=== PATIENT | female | born 1980 | race Caucasian/White ===

== ENCOUNTER 2017-07-24 21:02 | Emergency (ER) | payer BC, OTHER ==
[2017-07-24 21:11] VITALS: BP 146/97; PULSE 78; TEMP 98.9; BMI 32.3
--- NOTE | 2017-07-24 21:12 | PDOC ---
Rapid Medical Evaluation Chief Complaint: Vaginal Bleeding Time Seen by Provider: 07/24/17 21:10 Medical Evaluation: 07/24/17 21:10 I have performed a brief in-person evaluation of this patient. The patient presents with a chief complaint of: ~5 weeks with vaginal bleeding and cramping. Pertinent physical exam findings: n/a I have ordered the following: n/a The patient will proceed to the ED for further evaluation. Discharge Disposition - Referrals Referrals: Kamla Arzate MD [Primary Care Provider] - - Patient Instructions - Post Discharge Activity
[2017-07-24 21:42] LABS: BASOPHIL 1.1 % (0-2.0); EOSINOPHIL 1.3 % (0-4.5); MCH 29.3 pg (25.7-33.7); MCHC 33.7 g/dl (32.0-36.0); MEAN CELL VOLUME 87.1 fl (80-96); MEAN PLT VOLUME 8.7 fl (7.5-11.1); NEUTROPHILS 64.3 % (42.8-82.8); PLATELET COUNT 315 K/MM3 (134-434); RDW 12.9 % (11.6-15.6); WHITE BLOOD COUNT 12.3 K/mm3 (4.0-10.0)
[2017-07-24 21:56] LABS: INR 0.97 (0.82-1.09)
[2017-07-24 21:59] LABS: ACTIVATED PTT 28.6 SECONDS (26.9-34.4)
[2017-07-24 22:10] LABS: ALBUMIN 3.8 g/dl (3.4-5.0); ANION GAP 9 (8-16); CALCIUM 8.7 mg/dL (8.5-10.1); CO2 25 mmol/L (21-32); GLUCOSE,RANDOM 128 mg/dL (74-106); SGOT/AST 11 U/L (15-37); SGPT/ALT 24 U/L (12-78)
[2017-07-24 22:17] LABS: ALK PHOS 61 U/L (45-117); BILIRUBIN,TOTAL 0.5 mg/dL (0.2-1.0); CREATININE 0.9 mg/dL (0.55-1.02); TOT PROT 7.6 g/dl (6.4-8.2)
[2017-07-24 23:10] LABS: URINE APPEARANCE CLEAR; URINE BILIRUBIN NEGATIVE (NEGATIVE); URINE BLOOD 3+ (NEGATIVE); URINE COLOR LT. YELLOW; URINE GLUCOSE (UA) NEGATIVE (NEGATIVE); URINE KETONE NEGATIVE (NEGATIVE); URINE NITRITE NEGATIVE (NEGATIVE); URINE PROTEIN NEGATIVE (NEGATIVE)
[2017-07-24 23:21] LABS: URINE MUCUS RARE; URINE RBC 2 /hpf (0-3); URINE WBC 4 /hpf (3-5)
--- NOTE | 2017-07-24 23:26 | PDOC ---
History of Present Illness <Francine Prado - Last Filed: 07/24/17 23:39> - History of Present Illness Initial Comments: 07/24/17 23:37 The patient is a 36 year old female , with a significant past medical history of ectopic in 2007, who presents to the emergency department with pelvic pain today at 6:00 pm. Patient states that she is currently experiencing pelvic cramping that radiates to her back along with vaginal spotting. Her last menses was June 19. She took a test last week and it came back positive. She is also experiencing breast tenderness. She came to the ER because she is worried that she may be miscarrying She denies recent fevers, chills, headache or dizziness. She denies recent nausea, vomit, diarrhea or constipation. She denies recent dysuria, frequency, urgency or hematuria. She denies recent chest pain or shortness of breath. Primary Care Physician: Angelita Salguero <Mary Lou Blum - Last Filed: 07/24/17 23:43> - General Chief Complaint: Vaginal Bleeding Stated Complaint: 5 WEEKS PREG, CRAMPING, MIN BLEEDING Time Seen by Provider: 07/24/17 23:19 Past History - Past Medical History COPD: No - Suicide/Smoking/Psychosocial Hx Smoking History: Former smoker Have you smoked in the past 12 months: No Information on smoking cessation initiated: No Hx Alcohol Use: No Drug/Substance Use Hx: No Substance Use Type: None <Francine Prado - Last Filed: 07/24/17 23:39> Review of Systems - Review of Systems Comments:: 07/24/17 23:37 CONSTITUTIONAL: Absent: fever, no chills, no fatigue EYES: Absent: visual changes ENT: Absent: ear pain, no sore throat CARDIOVASCULAR: Absent: chest pain, no palpitations RESPIRATORY: Absent: cough, no SOB GI: Present: suprapubic pain Absent: no nausea, no vomiting, no constipation, no diarrhea GENITOURINARY: Absent: dysuria, no frequency, no hematuria [employer]ER PIANO: vaginal spotting. MUSCULOSKELETAL: Present: lower back pain Absent: no arthralgia, no myalgia SKIN: Absent: rash NEURO: Absent: headache <Mary Lou Blum - Last Filed: 07/24/17 23:43> *Physical Exam - Vital Signs Last Vital Signs Temp Pulse Resp BP Pulse Ox 98.9 F 78 20 146/97 99 07/24/17 21:06 07/24/17 21:06 07/24/17 21:06 07/24/17 21:06 07/24/17 21:06 <Francine Prado - Last Filed: 07/24/17 23:39> - Vital Signs Last Vital Signs Temp Pulse Resp BP Pulse Ox 98.9 F 78 20 146/97 99 07/24/17 21:06 07/24/17 21:06 07/24/17 21:06 07/24/17 21:06 07/24/17 21:06 - Physical Exam Comments: 07/24/17 23:37 GENERAL: Well-appearing, well-nourished. No apparent distress. HEENT: Normocephalic, atraumatic. PERRL, EOM intact. CARDIOVASCULAR: Normal S1, S2. Regular rate and rhythm. PULMONARY: Clear to auscultation bilaterally. ABDOMEN: Soft, non-distended, non-tender. EXTREMITIES: Normal ROM in all four extremities. No gross deformities. SKIN: Warm, dry. No rash NEUROLOGICAL: No focal neurological deficits. <ViktoriaLucaMary Lou - Last Filed: 07/24/17 23:43> ED Treatment Course - LABORATORY CBC & Chemistry Diagram: 07/24/17 21:14 07/24/17 21:14 - ADDITIONAL ORDERS Additional order review: Laboratory Results 07/24/17 07/24/17 07/24/17 21:14 21:14 21:14 PT with INR 11.00 INR 0.97 PTT (Actin FS) 28.6 Sodium 139 Potassium 3.9 Chloride 105 Carbon Dioxide 25 Anion Gap 9 BUN 14 Creatinine 0.9 Creat Clearance w eGFR > 60 Random Glucose 128 H Calcium 8.7 Total Bilirubin 0.5 AST 11 L ALT 24 Alkaline Phosphatase 61 Total Protein 7.6 Albumin 3.8 Beta HCG, Quant 17.9 Urine Color Lt. yellow Urine Appearance Clear Urine pH 7.0 Ur Specific [place] 1.015 Urine Protein Negative Urine Glucose (UA) Negative Urine Ketones Negative Urine Blood 3+ H Urine Nitrite Negative Urine Bilirubin Negative Urine Urobilinogen 1.0 07/24/17 21:14 RBC 4.50 MCV 87.1 MCHC 33.7 RDW 12.9 MPV 8.7 Neutrophils % 64.3 Lymphocytes % 28.4 Monocytes % 4.9 Eosinophils % 1.3 Basophils % 1.1 <Francine Prado - Last Filed: 07/24/17 23:39> - LABORATORY CBC & Chemistry Diagram: 07/24/17 21:14 07/24/17 21:14 - ADDITIONAL ORDERS Additional order review: Laboratory Results 07/24/17 07/24/17 07/24/17 21:14 21:14 21:14 PT with INR 11.00 INR 0.97 PTT (Actin FS) 28.6 Sodium 139 Potassium 3.9 Chloride 105 Carbon Dioxide 25 Anion Gap 9 BUN 14 Creatinine 0.9 Creat Clearance w eGFR > 60 Random Glucose 128 H Calcium 8.7 Total Bilirubin 0.5 AST 11 L ALT 24 Alkaline Phosphatase 61 Total Protein 7.6 Albumin 3.8 Beta HCG, Quant 17.9 Urine Color Lt. yellow Urine Appearance Clear Urine pH 7.0 Ur Specific [place] 1.015 Urine Protein Negative Urine Glucose (UA) Negative Urine Ketones Negative Urine Blood 3+ H Urine Nitrite Negative Urine Bilirubin Negative Urine Urobilinogen 1.0 Blood Type Antibody Screen 07/24/17 21:10 PT with INR INR PTT (Actin FS) Sodium Potassium Chloride Carbon Dioxide Anion Gap BUN Creatinine Creat Clearance w eGFR Random Glucose Calcium Total Bilirubin AST ALT Alkaline Phosphatase Total Protein Albumin Beta HCG, Quant Urine Color Urine Appearance Urine pH Ur Specific [place] Urine Protein Urine Glucose (UA) Urine Ketones Urine Blood Urine Nitrite Urine Bilirubin Urine Urobilinogen Blood Type A POSITIVE Antibody Screen Negative 07/24/17 21:14 RBC 4.50 MCV 87.1 MCHC 33.7 RDW 12.9 MPV 8.7 Neutrophils % 64.3 Lymphocytes % 28.4 Monocytes % 4.9 Eosinophils % 1.3 Basophils % 1.1 <Mary Lou Blum - Last Filed: 07/24/17 23:43> Medical Decision Making - Medical Decision Making 07/24/17 23:39 bhcg 17 LMP 06/19/17 -pt had some pelvic cramping and scant vag bleeding plan pt to have repeat bhcg in 48 hours and see her [place] machine operator Dr Lazaro this week imp threatened AB <Francine Prado - Last Filed: 07/24/17 23:39> *DC/Admit/Observation/Transfer <Francine Prado - Last Filed: 07/24/17 23:39> - Attestations Scribe Attestion: 07/24/17 23:37 Documentation prepared by Mary Lou Blum, acting as medical equipment repairer for Francine Prado MD. <Mary Lou Blum - Last Filed: 07/24/17 23:43> Diagnosis at time of Disposition: Threatened in early - Discharge Dispostion Disposition: HOME Condition at time of disposition: Stable - Referrals Referrals: Kamla Arzate MD [Primary Care Provider] - - Patient Instructions Additional Instructions: please have repeat BHCG in 48 hours and followup with your [place] machine operator - Post Discharge Activity
[2017-07-25 10:33] LABS: URINE LEUK ESTERASE Negative (NEGATIVE)
== END 2017-07-24 23:43 | disposition home or self-care (01) ==
LOC: JER 21:02
DX: O26.891 Other specified pregnancy related conditions, first trimester (principal); O20.0 Threatened abortion; Z3A.01 Less than 8 weeks gestation of pregnancy
CPT/HCPCS: 36415; 80053; 81003; 81015; 84702; 85025; 85610; 85730; 86850; 86900; 86901; 99282-25